=== PATIENT | female | born 1965 | race Caucasian/White ===

== ENCOUNTER 2024-12-06 09:34 | Outpatient (CLI) | payer OTHER, SELFPAY ==
--- NOTE | 2024-12-06 09:53 | XR_ITS ---
WS: [email or web address] Calcaneus, left, AP and lateral views, 12/06/2024 Clinical Data: heel spur Comparison: None. Findings: There are no fractures or dislocations. The soft tissues are normal. There are no heel spurs. No bone destruction or erosion is noted. XR/XR calcaneus LT min 2V [id number] Impression: Negative left calcaneus.
--- NOTE | 2024-12-06 09:53 | XR_ITS ---
WS: [email or web address] Cervical spine, 3 views, 12/06/2024 Clinical Data: cervical spondylosis Comparison: None. Findings: No compression fractures are seen. There is degenerative disc narrowing at C4-C5 and C5-C6. There is spurring of the vertebral bodies C4-C6. There is no prevertebral soft tissue swelling. The odontoid is unremarkable. The soft tissues of the neck and the lung apices are normal. XR/XR cervical spine 3V* [id number] Impression: Multilevel osteoarthritis and degenerative disc narrowing.
--- NOTE | 2024-12-06 09:54 | XR_ITS ---
WS: [email or web address] Chest 2 views, 12/06/2024 Clinical Data: bronchitis Comparison: None. Findings: No nodules, masses or effusions are seen. The heart is normal. The pulmonary vascularity is not increased. No pneumonia or pneumothorax is seen. XR/XR chest 2V* [id number] Impression: Negative chest.
--- NOTE | 2024-12-06 09:56 | XR_ITS ---
WS: [email or web address] Calcaneus, right, AP and lateral views, 12/06/2024 Clinical Data: heel spur Comparison: None. Findings: No fractures or dislocations are seen. There are no heel spurs. The soft tissues are normal. No bone destruction or erosion is seen. XR/XR calcaneus RT min 2V [id number] Impression: Negative right calcaneus.
--- NOTE | 2024-12-06 09:56 | XR_ITS ---
WS: [email or web address] Left shoulder, 2 views, 12/06/2024 Clinical Data: osteoarthritis Comparison: None. Findings: No fractures or dislocations are seen. There is mild osteoarthritis of the left glenohumeral joint. The AC joint is normal. The adjacent left clavicle, left scapula and ribs are normal. The soft tissues are unremarkable. XR/XR shoulder LT min 2V* [id number] Impression: Mild osteoarthritis of the left glenohumeral joint.
--- NOTE | 2024-12-06 09:57 | XR_ITS ---
WS: [email or web address] Right shoulder, 2 views, 12/06/2024 Clinical Data: osteoarthritis Comparison: None. Findings: No fractures or dislocations are seen. There is mild degenerative change of the right glenohumeral joint. The AC joint is normal. The adjacent right clavicle, right scapula and ribs are normal. The soft tissues are unremarkable. XR/XR shoulder RT min 2V* [id number] Impression: Mild osteoarthritis of the right glenohumeral joint.
--- NOTE | 2024-12-06 09:58 | XR_ITS ---
WS: [email or web address] Left knee, 3 views, 12/06/2024 Clinical Data: LT knee uncompartmentalized knee replacement, osteoarthritis Comparison: None. Findings: No fractures or dislocations are seen. There is a partial left knee arthroplasty with replacement of the medial joint space. The arthroplasty components show no loosening or periprosthetic fractures. The joint spaces are normal. The patella is intact. The soft tissues are unremarkable. XR/XR knee LT 3V* [id number] Impression: Medial left knee hemiarthroplasty.
--- NOTE | 2024-12-06 09:59 | XR_ITS ---
WS: [email or web address] Right knee, 3 views, 12/06/2024 Clinical Data: osteoarthritis Comparison: None. Findings: No fractures or dislocations are seen. The joint spaces are normal. The patella is intact. The soft tissues are unremarkable. The sunrise view of the patella is normal. XR/XR knee RT 3V* [id number] Impression: Negative right knee.
[2024-12-06 10:00] VITALS: PULSE 68; RESP 18; O2SAT 99
[2024-12-06] MEDS: albuterol 2.5 mg/3 mL Neb INHALATION (10:01)
== END 2024-12-06 09:35 | disposition home or self-care (01) ==
LOC: RT 09:41
PROVIDERS: Visit Provider Chiropractor
DX: Z96.652 Presence of left artificial knee joint (principal); M17.0 Bilateral primary osteoarthritis of knee; M19.011 Primary osteoarthritis, right shoulder; M19.012 Primary osteoarthritis, left shoulder; M77.31 Calcaneal spur, right foot; M77.32 Calcaneal spur, left foot; M47.812 Spondylosis without myelopathy or radiculopathy, cervical region; R07.9 Chest pain, unspecified; J98.8 Other specified respiratory disorders; M50.321 Other cervical disc degeneration at C4-C5 level; M50.322 Other cervical disc degeneration at C5-C6 level
CPT/HCPCS: 71046; 72040; 73030; 73562; 73650; 94060; J7613